=== PATIENT | male | born 1985 ===

== ENCOUNTER 2019-07-07 17:32 | Emergency (ER) | payer SELFPAY ==
--- NOTE | 2019-07-07 18:07 | NUR ---
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
== END 2019-07-07 18:09 | disposition left against medical advice (07) ==
LOC: ED 18:03
DX: R06.02 Shortness of breath (principal); Z53.21 Procedure and treatment not carried out due to patient leaving prior to being seen by health care provider